=== PATIENT | male | born 1955 | race Caucasian/White ===

== ENCOUNTER 2022-05-25 23:55 | Emergency (ER) | payer MEDICARE, MEDICAID ==
[2022-05-26 00:48] LABS: ANION GAP 20.3 mmol/L (5-15)
[2022-05-26] MEDS ORDERED: Sodium Chloride 0.9% 10 ML Syringe FLUSH PRN (01:00)
[2022-05-26] MEDS ORDERED: cefTRIAXone 1 GM Vial IVPUSH ONE (01:01)
[2022-05-26] MEDS ORDERED: Water For Injection, Sterile 20 ML ONE (01:24)
== END 2022-05-26 01:59 | disposition home or self-care (01) ==
LOC: SUPCPDRO 23:55 → KA.ED 23:55
DX: S90.822A Blister (nonthermal), left foot, initial encounter (principal); Z88.5 Allergy status to narcotic agent; Z88.2 Allergy status to sulfonamides
CPT/HCPCS: 36415; 80048; 83605; 85025; 87070; 87075; 87205; 96374; 99283; J0696; 73620-LT; 87186; J3490